=== PATIENT | female | born 1965 | race Two or more races ===

== ENCOUNTER 2019-01-05 02:24 | Emergency (ER) | payer OTHER ==
[~2019-01-05] VITALS: Ht 167.6 cm; Wt 59.0 kg
--- NOTE | 2019-01-05 02:30 | NUR ---
PT BIBSELF C/C URINARY FREQUENCY W/ BURNING, LOWER PELVIC PAIN, HEMATURIA X YESTERDAY STARTED TAKING MACROBID 1800 X TODAY FOR UTI, FEELS PAIN GETTING WORSE. PT AOX4. NAD NOTED. RESP EVEN AND UNLABORED. PT ON MONITOR IN BED 9. FAMILY AT BEDSIDE. WILL CONTINUE TO MONITOR.
--- NOTE | 2019-01-05 02:32 | NUR ---
URINE COLLECTED AND SENT TO LAB
[2019-01-05 02:46] LABS: APPEARANCE,URINE Slightly Cloudy (CLEAR); BILIRUBIN,URINE LARGE (NEGATIVE); BLOOD, URINE Large Ery/uL (NEGATIVE); COLOR,URINE Red (YELLOW); KETONES,URINE 15 (NEGATIVE); LEUKOCYTE ESTERASE ,URINE Large (NEGATIVE); NITRITE, URINE Positive (NEGATIVE); PH,URINE 5.5 (5.0-8.0); PROTEIN,URINE >=300 mg/dl (NEGATIVE); UGLUCOSE 100 MG/DL mg/dL (NEGATIVE)
[2019-01-05] MEDS ORDERED: CEFTRIAXONE 1GM BAG (ER ONLY) 1 GM/50 ML PIGGYBACK IV ONE (03:00)
[2019-01-05] MEDS ORDERED: KETOROLAC TROMETHAMINE INJ 30 MG/ML VIAL IV ONE (03:00)
[2019-01-05] MEDS ORDERED: IV NS 0.9% 1,000 ML BAG IV ONE (03:00)
--- NOTE | 2019-01-05 03:00 | NUR ---
ADDENDUM: Intravenous End Time Documentation: Normal saline 1 liter (IV-WO) : start time: 0300 am ; end time: 0400 am : IV site: LAC # 20 Port # 1 Rocephin 1 gram IVPB: start time: 0300 am ; end time:0330 am IV site:LAC # 20 Port # 2 Toradol 15 mg IV push; LAC # 20 - port #1
[2019-01-05 03:02] LABS: BACTERIA,URINE None seen /HPF (None Seen); RBC,URINE TOO NUMEROUS TO COUN /HPF (0-2); SQUAMOUS EPITHELIAL CELL,UR Few /HPF (None Seen)
--- NOTE | 2019-01-05 03:09 | NUR ---
BLOOD DRAWN AND GIVEN TO LAB
[2019-01-05] MEDS ORDERED: CEFTRIAXONE 1GM BAG (ER ONLY) 50 ML IV ONE (03:10)
[2019-01-05] MEDS ORDERED: KETOROLAC TROMETHAMINE 15 MG/ML VIAL ONE (03:10)
[2019-01-05 03:11] LABS: BASOPHILS # (AUTO) 0.1 /CMM (0.0-0.2); BASOPHILS % (AUTO) 0.5 % (0.0-2.0); EOSINOPHILS % (AUTO) 2.4 % (0.0-6.0); HEMATOCRIT 37 % (33-45); HEMOGLOBIN 12.3 g/dL (11.5-14.8); LYMPHOCYTES # (AUTO) 1.5 /CMM (0.8-4.8); LYMPHOCYTES % (AUTO) 10.7 % (20.0-44.0); MEAN CORPUSCULAR HGB CONC 33 g/dl (31.0-36.0); MEAN CORPUSCULAR VOLUME 89 fL (82-100); MONOCYTES # (AUTO) 0.7 /CMM (0.1-1.30); MONOCYTES % (AUTO) 5.3 % (2.0-12.0); NEUTROPHILS # (AUTO) 11.5 /CMM (1.8-8.9); NEUTROPHILS % (AUTO) 81.1 % (43.0-81.0); PLATELET COUNT (AUTO) 254 /CMM (150-450); RED BLOOD CELL COUNT(AUTO) 4.13 MIL/uL (4.0-5.2); WHITE BLOOD COUNT (AUTO) 14.2 K/uL (4.3-11.0)
[2019-01-05 03:15] LABS: CALCIUM, SERUM 9.3 mg/dL (8.5-10.1); CREATININE 0.8 mg/dL (0.6-1.3); POTASSIUM 3.8 mmol/L (3.5-5.1)
[2019-01-05 03:20] VITALS: BP 129/79
--- NOTE | 2019-01-05 04:38 | NUR ---
IV removed. Catheter intact and site benign. Pressure and 4x4 applied to site. No bleeding noted.Patient discharged to home in stable condition. Written and verbal after care instructions given. Patient verbalizes understanding of instruction. PT AMBULATORY WITH STEADY GAIT ACCOMPANIED BY FAMILY.
== END 2019-01-05 04:53 | disposition home or self-care (01) ==
LOC: ER 02:32
DX: N39.0 Urinary tract infection, site not specified (principal); Z98.890 Other specified postprocedural states
CPT/HCPCS: 36415; 80048; 81001; 85025; 87077; 87086; 87186; 96365; 96375; 99283; J0696; J1885; J7030; 81000-TC